=== PATIENT | female | born 1965 | race Caucasian/White ===

== ENCOUNTER → 2017-01-28 | Day surgery (SDC) | payer OTHER, MEDICARE ==
--- NOTE | 2017-01-27 16:37 | History & Physical Pre-Op ---
General Information and HPI History of Present Illness: Mei is a 51-year-old female with a long-standing and worsening complaint of a painful Toñito's deformity left heel. She hasn't has undergone an extended course of conservative care, including shoe gear and activity modification, rest , immobilization and courses of NSAIDs. None of this is yielded her any significant relief. The patient presents today for preoperative surgical consultation. Allergies/Medications Allergies: Coded Allergies: bacitracin (UNKNOWN 12/28/15) calamine (UNKNOWN 12/28/15) chlorpromazine (From Thorazine) (UNKNOWN 01/27/17) FROM ANTIBIOTIC ORDER SHEET OF 01/27/17 (SJS) codeine (UNKNOWN 12/28/15) epinephrine (UNKNOWN 12/28/15) neomycin (UNKNOWN 12/28/15) polymyxin B (UNKNOWN 12/28/15) sulfamethoxazole (From Bactrim) (UNKNOWN 01/27/17) FROM ANTIBIOTIC ORDER SHEET OF 01/27/17 (SJS) thioridazine (IBOI4GX 12/28/15) trimethoprim (From Bactrim) (UNKNOWN 01/27/17) FROM ANTIBIOTIC ORDER SHEET OF 01/27/17 (SJS) Home Med list Albuterol Sulfate (Albuterol Sulfate Hfa) 0.09 MG/Actuation GINA 2 PUFF INH Q4H PRN SHORTNESS OF BREATH (Reported) 90 MCG PER PUFF Albuterol Sulfate 3 ML NEB 3 ML INH PRN COPD (Reported) Atorvastatin Calcium (Lipitor) 10 MG TAB 1 TAB PO DAILY CHOLESTEROL (Reported ) Budesonide/Formoterol Fumara (Symbicort 160-4.5 Mcg Inhaler) 160 MCG/4.5 MCG PUF 2 PUF INH BID COPD (Reported) BUPROPION HCL (Bupropion XL) 150 MG T24 1 TAB PO QAM MENTAL HEALTH (Reported) CALCIUM CARBONATE/MAG CARB (Magnebind 300 Tablet) (Unknown Strength) TAB 1 TAB PO BID SUPPLEMENT (Reported) Clonazepam (Klonopin 1MG Tab) 1 MG TAB 1 TAB PO QHS PRN MENTAL HEALTH ( Reported) Clozapine 100 MG TAB 500 MG PO QHS MENTAL HEALTH (Reported) Enoxaparin Sodium (Lovenox) 40 MG/0.4 ML SYRINGE 0.4 ML SC DAILY OFF COUNADIN (Reported) Esomeprazole (Nexium) 40 MG CAP 1 CAP PO BID GI (Reported) Gabapentin (Gabapentin Tab 600MG) 600 MG TAB 1 TAB PO BID MENTAL HEALTH/ SEIZURES (Reported) Lamotrigine (Lamictal 25MG) 25 MG TAB 2 TAB PO DAILY MENTAL HEALTH (Reported) Levetiracetam 750 MG TAB 1 TAB PO BID SEIZURES (Reported) Levothyroxine Sodium 0.2 MG TAB 0.2 MG PO DAILY AC THYROID (Reported) METFORMIN HCL (Metformin) 1,000 MG TAB 1 TAB PO BID DIABETES (Reported) Multivitamin (Multiple Vitamins) 1 TAB TAB 1 TAB PO DAILY SUPPLEMENT ( Reported) Nitroglycerin (Nitrostat) 0.4 MG TAB 1 TAB SL PRN HEART (Reported) Vitamin B Complex 1 CAP CAP 1 CAP PO DAILY SUPPLEMENT (Reported) Warfarin Sodium (Coumadin) 2 MG TAB 1 TAB PO DAILY BLOOD THINNER Warfarin Sodium (Coumadin) 5 MG TAB 1 TAB PO DAILY BLOOD THINNER Past History Medical History Neurological: restless leg syndrome, SEIZURES- last in 1996. EENT: NONE Cardiovascular: hyperlipidemia, PERICARDITIS Respiratory: COPD, pulmonary embolism Gastrointestinal: NONE, IBS/GERD/Hx Fe deficiency Hepatic: 03/17/2008: Liver bx- negative. 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 spouse Services at Home None Primary Language: French Living Will? unknown Power of Boiling Tub Operator/HCP? unknown Functional Ability ADLs Independent: dressing, eating, toileting, bathing. Ambulation: independent IADLs Independent: shopping, housework, finances, food prep, telephone, transportation , medication admin. Review of Systems Review of Systems: Unremarkable except for that noted in history of present illness Exam & Diagnostic Data Physical Exam: Lungs clear bilaterally. Heart sounds rate and rhythm regular. Lower extremity physical exam demonstrates intact pedal pulses bilaterally. Both dorsalis pedis and posterior tibial arteries are palpable bilaterally. Patient without any sensory motor deficits. Deep tendon reflexes grossly intact. Patient noted to have significant pain with palpation to the posterior aspect of her left heel. Assessment/Plan Assessment/Plan: Painful Toñito's deformity left heel. A lengthy discussion reviewing both surgical and conservative options was held with the patient at bedside and the patient elects to go. Forward with surgery despite the risks. As Ranked By This Provider Problem List: 1. Injury of left Achilles tendon Attending MD Review Statement Attending Statement Attending MD Statement: examined this patient
[~2017-01-28] VITALS: Ht 162.6 cm; Wt 66.2 kg
[~2017-01-28] MED LIST: ALBUTEROL SULFAT3 M1 INH; ALBUTEROL0.09 MG/A1 INH; ANTIVERT 25 MG25 MG PO; ATORVASTATIN CA10 MG PO; AUGMENTIN 875 M1 TAB PO; BUPROPION HCL150 M2 PO; CLOZAPINE100 MG PO; COUMADIN 10 MG10 MG PO; COUMADIN 2 MG TA2 MG PO; COUMADIN 5 MG TA5 MG PO; FISH OIL CONC1000 MG PO; GABAPENTIN TAB600 MG PO; KLONOPIN 1MG TAB1 MG PO; LAMICTAL 25MG25 MG PO; LEVETIRACETAM750 MG PO; LEVOTHYROXINE0.2 MG PO; LOVENOX40 MG/0.1 SC; MAGNEBIND 300 21 TAB PO; METFORMIN1000 MG PO; MULTIVITAMIN1 TAB PO; NEXIUM 40MG40 MG PO; NITROSTAT0.4 MG SL; SYMBICORT 160/41 PUF INH; VITAMIN B COMPL1 CAP PO
[2017-01-28 10:37] LABS: PT 11.1 SEC (9.4-12.5)
--- NOTE | 2017-01-28 12:56 | Operative Report ---
Operative/Inv Procedure Report Surgery Date: 01/28/17 Name of Procedure: 1 resection of Toñito's left heel 2 repair of Achilles tendon left 3 intraoperative administration of ankle block anesthesia 4 intraoperative application of nonweightbearing cast left Pre-Operative Diagnosis: 1 painful Toñito's deformity left heel 2 chronic Achilles tendinosis left Post-Operative Diagnosis: The same Estimated Blood Loss: scant Surgeon/Seamless Tube Drawer: CHRISTIE HENDERSON,ROSALINO Jaramillo DPM Anesthesia: moderate sedation, block Operative/Procedure Note Note: After obtaining informed consent the patient was brought to the operating room and placed on the operating table in the prone position. The patient was then securely fastened to the operating table utilizing a safety belt. After administration of IV sedation, 10 mL of 0.5% Marcaine plain was infiltrated about the patient's posterior left leg. A well-padded thigh tourniquet was placed about the patient's left upper thigh. 2 g of Ancef were delivered intravenously times one dose. The left lower extremity was scrubbed prepped and draped in the usual aseptic manner. The left leg was flexed at the knee and exsanguinated, at which point the thigh tourniquet was inflated 275 mmHg. Attention directed to the posterior left heel, where a adjacent shaped incision encompassing the Toñito's was marked out with a skin marker. The skin was then incised with a 15 blade and deepened into the septae slayers. A full-thickness flap was then elevated off the posterior aspect of the Achilles tendon. The Achilles was noted to have significant tendinosis. This was then debrided. The tendon was then elevated off the posterior aspect of the calcaneus. A significant posterior spur was identified and this was resected with a sagittal bone saw. The tendon was then debrided and repaired and fixated back to the posterior calcaneus with the Arthrex Achilles bridge. The deep tissues were then reapproximated with 3-0 Vicryl. Subtenons tissues reapproximated 4-0 Vicryl and the skin edges reapproximated with 3-0 nylon. Incision was then dressed with Xeroform 4 x 4's and cast padding. A none weightbearing Krishnan compressive dressing and 4 inch posterior splint was then placed about the patient's left posterior leg. Patient was noted tolerate both procedure and anesthesia well and the patient was transported from the operating room to recovery via signs stable best assess intact all digits left foot.
== END ==
LOC: STS 04:00
PROVIDERS: Podiatrist Foot & Ankle Surgery
DX: M21.6X2 Other acquired deformities of left foot (principal); M67.874 Other specified disorders of tendon, left ankle and foot; R06.02 Shortness of breath; J44.9 Chronic obstructive pulmonary disease, unspecified; D68.61 Antiphospholipid syndrome; E03.9 Hypothyroidism, unspecified; Z86.711 Personal history of pulmonary embolism; Z79.01 Long term (current) use of anticoagulants
CPT/HCPCS: 1263; 36415; 81025; 88304; J0131; J0690; J2001; J2250

== ENCOUNTER → 2017-05-08 | Day surgery (SDC) | payer OTHER, MEDICARE ==
[~2017-05-08] VITALS: Ht 170.2 cm; Wt 112.5 kg
[~2017-05-08] MED LIST changes: +LEVOTHYROXINE25 MCG PO; +OXYCODONE HCL5 M2 PO
--- NOTE | 2017-05-08 12:32 | Operative Report ---
Operative/Inv Procedure Report Surgery Date: 05/08/17 Name of Procedure: D&C hysteroscopy Pre-Operative Diagnosis: Metromenorrhagia Post-Operative Diagnosis: Same Estimated Blood Loss: less than 50ml Surgeon/Barrel Lathe Operator: NATHEN ONOFRE MD Anesthesia: moderate sedation Operative/Procedure Note Note: Patient was taken to the operating room placed in dorsal supine position. After adequate anesthesia, patient was prepped and draped for surgery. Examination under anesthesia was performed. CO2 tenaculum was placed on the anterior lip of the cervix gentle downward traction was used. The cervix was dilated 29 Hegar to left insertion of the hysteroscope. Under direct visualization to hysteroscopy was performed using gas hysteroscope was removed and endocervical curettage was performed. And endometrial curettage was performed. All instruments removed from the vagina. The counts were correct the patient was awakened from anesthesia. And transported to recovery room awake and alert. Findings: Enlarged uterus no adnexal masses heavy uterine lining
== END ==
LOC: STS 02:31
DX: N92.1 Excessive and frequent menstruation with irregular cycle (principal); N85.2 Hypertrophy of uterus; E11.9 Type 2 diabetes mellitus without complications; E03.9 Hypothyroidism, unspecified; K21.9 Gastro-esophageal reflux disease without esophagitis
CPT/HCPCS: 36415; J2250

== ENCOUNTER → 2017-12-23 | Day surgery (SDC) | payer OTHER, MEDICARE ==
--- NOTE | 2017-12-21 20:08 | History & Physical Pre-Op ---
General Information and HPI History of Present Illness: Mei is a 52-year-old female status post Toñito's resection with repair of the Achilles tendon, who developed a foreign body reaction with an associated soft tissue lesion and nonhealing wound left ankle. The patient has failed an extended course of local intensive wound care in the wound center. Patient presents today for preoperative surgical consultation. Allergies/Medications Allergies: Coded Allergies: bacitracin (Intermediate, RASH 12/19/17) calamine (Intermediate, RASH 12/19/17) codeine (Intermediate, DIZZINESS, DYSPNEA 12/21/17) epinephrine (Intermediate, DIZZINESS, DYSPNEA 12/21/17) neomycin (Intermediate, RASH 12/19/17) polymyxin B (RASH 12/21/17) Home Med list Albuterol Sulfate (Proair Hfa) 90 MCG HFA.AER.AD 2 PUF INH AD PRN COPD ( Reported) Albuterol Sulfate 2.5 MG/3 ML (0.083 %) VIAL.NEB 1 Vial INH/CEZAR AD PRN COPD ( Reported) Atorvastatin Calcium (Lipitor) 10 MG TABLET 1 TAB PO QPM CHOLESTEROL ( Reported) Budesonide/Formoterol Fumarate (Symbicort 160-4.5 Mcg Inhaler) 160 MCG-4.5 MCG/ ACTUATION HFA.AER.AD 2 PUF INH BID COPD (Reported) Bupropion HCl (Wellbutrin XL) 150 MG TAB.ER.24H 1 TAB PO DAILY MENTAL HEALTH (Reported) Clonazepam 1 MG TABLET 1 TAB PO BIDP PRN ANXIETY/RLS (Reported) Clozapine (Clozaril) 100 MG TABLET 500 MG PO QHS MENTAL HEALTH (Reported) Esomeprazole (Nexium) 40 MG CAPSULE.DR 1 CAP PO BID GI (Reported) Gabapentin 600 MG TABLET 1 TAB PO BID PRN ANXIETY (Reported) Lamotrigine (Lamictal) 100 MG TABLET 1 TAB PO DAILY MENTAL HEALTH (Reported) Lamotrigine (Lamictal) 25 MG TABLET 2 TAB PO DAILY MENTAL HEALTH (Reported) Levetiracetam (Keppra) 500 MG TABLET 2 TAB PO BID MYOCLONIC SPASMS (Reported) Levetiracetam (Keppra) 250 MG TABLET 1 TAB PO BID MYOCLONIC SPASMS (Reported) Levothyroxine Sodium 200 MCG TABLET 1 TAB PO DAILY THYROID (Reported) Meclizine HCl 25 MG TABLET 1 TAB PO AD PRN VERTIGO (Reported) Metformin HCl (Glucophage) 1,000 MG TABLET 1 TAB PO BID DM (Reported) Nitroglycerin (Nitrostat) 0.4 MG TAB.SUBL 1 TAB SL AD PRN CHEST PAIN ( Reported) 1st sign of attack; may repeat every 5 minutes until relief; if pain persists after 3 tablets in 15 minutes, prompt medical att [place]-3S/Dha/Epa/Fish Oil (Fish Oil 1,000 MG Softgel) (Unknown Strength) CAPSULE (Unknown Dose) PO BID SUPPLEMENT (Reported) Tramadol HCl 50 MG TABLET 1 TAB PO Q4H PRN PAIN (Reported) Vitamin B Complex 1 EACH CAPSULE 1 CAP PO DAILY SUPPLEMENT (Reported) Past History Medical History Neurological: restless leg syndrome, SEIZURES- last in 1996. EENT: NONE Cardiovascular: hyperlipidemia, PERICARDITIS Respiratory: COPD, pulmonary embolism Gastrointestinal: NONE, IBS/GERD/Hx Fe deficiency Hepatic: 03/17/2008: Liver bx- negative. 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 spouse Services at Home None Primary Language: Latvian Living Will? unknown Power of Aircraft Instrument Tester/HCP? unknown Functional Ability ADLs Independent: dressing, eating, toileting, bathing. Ambulation: independent IADLs Independent: shopping, housework, finances, food prep, telephone, transportation , medication admin. Review of Systems Review of Systems: Unremarkable except for that noted in history of present illness Exam & Diagnostic Data Physical Exam: Lungs clear bilaterally. Heart sounds rate and rhythm regular. Lower extremity physical exam demonstrates intact pedal pulses bilaterally. Both dorsalis pedis and posterior tibial arteries are palpable bilaterally. Patient without any sensory motor deficits. Deep tendon reflexes plus grossly intact. Patient noted to have a 17 medial by 1 cm lesion identified at the distal medial aspect of the left ankle. There is probing identified. A hyper granular wound bed is noted centrally. No erythema or significant drainage identified. Assessment/Plan Assessment/Plan: Soft tissue lesion left ankle. A lengthy discussion reviewing both surgical and conservative options with the patient at bedside and the patient elects to go forward with surgery despite the risks. As Ranked By This Provider Problem List: 1. Neoplasm of unspecified behavior of bone, soft tissue, and skin Attending MD Review Statement Attending Statement Attending MD Statement: examined this patient
[~2017-12-23] VITALS: Ht 170.2 cm; Wt 112.5 kg
[~2017-12-23] MED LIST changes: +ALBUTEROL2.5 MG/3 M INH/SOL; +CLONAZEPAM1 M2 PO; +CLOZARIL100 M1 PO; +COUMADIN; +FISH OIL 1,0001 EAC5 PO; +GABAPENTIN600 M1 PO; +GLUCOPHAGE1000 M1 PO; +KEPPRA250 M1 PO; +KEPPRA500 M1 PO; +LAMICTAL100 M2 PO; +LAMICTAL25 M1 PO; +LEVOTHYROXINE200 MC1 PO; +LIPITOR10 M1 PO; +MECLIZINE HCL25 MG PO; +NEXIUM40 M1 PO; +NITROSTAT0.4 M1 SL; +PROAIR HFA8.5 GM INH; +SYMBICORT 16010.2 GM INH; +TRAMADOL HCL50 M1 PO; +VITAMIN B COMP1 EACH PO; +WELLBUTRIN XL150 M2 PO
--- NOTE | 2017-12-23 15:50 | Operative Report ---
Operative/Inv Procedure Report Surgery Date: 12/23/17 Name of Procedure: 1 excision of recurrent soft tissue lesion left ankle 2 closure of open surgical wound local random advancement flap 3 intraoperative administration of ankle block anesthesia Pre-Operative Diagnosis: 1 recurrent soft tissue lesion left ankle 2 retained foreign body left ankle Post-Operative Diagnosis: The same Estimated Blood Loss: scant Surgeon/Train Director: Mike HENDERSON,Roberto Jaramillo DPM Anesthesia: moderate sedation, block Operative/Procedure Note Note: After obtaining informed consent the patient was brought to the operating room and placed on the operating table in the supine position. The patient isn't securely fastened to the operating table utilizing safety belt. After Mr.'s of IV sedation, 10 mL of 0.5% Marcaine plain was infiltrated about the patient's left ankle. A well-padded ankle tourniquet was placed about the patient's left lower extremity. 2 g of Ancef were delivered intravenously times one dose. Left foot and ankle were scrubbed prepped and draped in usual aseptic manner. Left lower extremity was elevated to examine to limb, which point the ankle tourniquet inflated 250 mmHg. Attention then directed to the distal medial ankle, where a soft tissue lesion was identified and the distal portion of the prior incision site. The lesion was wedged out at a 31 ratio removed en bloc. The specimen sent for pathologic inspection. The deeper dissection uncovered foreign material consisting of free non-absorbable suture which was removed and passed from the operative field this was also sent as pathologic specimen. Nipple was then irrigated cuff Svensson normal sterile saline. A adjacent flap was then developed with undermining, mobilization adjacent advancement adjacent tissue centrally. The deep side flap was held with 3-0 Vicryl subtenons tissues reports a 4-0 Vicryl. Skin edges reapproximated 3-0 nylon. Incision just was Steri-Strips Xeroform 4 x 4's Kerlix and Reji wrap. The patient noted tolerate both procedure and anesthesia well and the patient was transported from the operating room to recovery by sent stable best assess intact to both the dorsal medial and lateral flaps.
== END ==
LOC: STS 03:04
PROVIDERS: Podiatrist Foot & Ankle Surgery
DX: D21.22 Benign neoplasm of connective and other soft tissue of left lower limb, including hip (principal); M60.272 Foreign body granuloma of soft tissue, not elsewhere classified, left ankle and foot; Z18.89 Other specified retained foreign body fragments; E11.9 Type 2 diabetes mellitus without complications; Z79.84 Long term (current) use of oral hypoglycemic drugs; Z86.711 Personal history of pulmonary embolism; Z79.01 Long term (current) use of anticoagulants; J44.9 Chronic obstructive pulmonary disease, unspecified; E03.9 Hypothyroidism, unspecified
CPT/HCPCS: 36415; 81025; J0690; J1885; J2001; J2250; J3490

== ENCOUNTER → 2018-03-10 | Day surgery (SDC) | payer OTHER, MEDICARE ==
--- NOTE | 2018-03-05 16:05 | History & Physical Pre-Op ---
General Information and HPI MD Statement: I have seen and personally examined ESVIN CESPEDES and documented this H&P. The patient is a 52 year old F who presented with a patient stated chief complaint of [inflammatory reaction to surgical implant, left heel]. Planned Procedures: Excision of granuloma, left heel, with exploration and possible removal of surgical implant and primary closure of chronic non-healing wound Planned Anesthesia: General, prone position Planned Hemostasis: Pneumatic left thigh cuff at 325mmHg Source of Information: patient Exam Limitations: no limitations History of Present Illness: This is a 52 year old female who was referred to me in the [facility] for a chronic nonhealing protruding wound that has been present for several months. Patient reports that she had a Toñito resection with Arthrex Achilles Speedbridge implant on 01/28/[address] Roberto Mckeon and that the wound presented itself along the incision line after she had healed the procedure. She reports that an attempt was made to excise the granulation tissue and the wound recurred. In the few weeks I have had her under my care, I obtained an MRI, which demonstrated hyperintensity of the calcaneus, successful posterior spur resection with benign Achilles, and inflammation subcutaneously in the area of the ulceration. In the time since the MRI, she reports having extruded portions of the plastic implant through the wound and showed me pictures of them on her phone. After discussing multiple options with the patient, we agreed to explore the surgical wound for more pieces of the implant and possibly suture threads, which she no longer needs implanted after the procedure has healed. She was also immobilized in a CAM walker in the weeks leading up to the procedure with the diagnosis of marrow edema in the calcaneus. Allergies/Medications Allergies: Coded Allergies: bacitracin (Intermediate, RASH 03/05/18) calamine (Intermediate, RASH 03/05/18) codeine (Intermediate, DIZZINESS, DYSPNEA 03/05/18) epinephrine (Intermediate, DIZZINESS, DYSPNEA 03/05/18) neomycin (Intermediate, RASH 03/05/18) polymyxin B (RASH 03/05/18) Home Med list Albuterol Sulfate (Proair Hfa) 90 MCG HFA.AER.AD 2 PUF INH AD PRN COPD ( Reported) Albuterol Sulfate 2.5 MG/3 ML (0.083 %) VIAL.NEB 1 Vial INH/CEZAR AD PRN COPD ( Reported) Atorvastatin Calcium (Lipitor) 10 MG TABLET 1 TAB PO QPM CHOLESTEROL ( Reported) Budesonide/Formoterol Fumarate (Symbicort 160-4.5 Mcg Inhaler) 160 MCG-4.5 MCG/ ACTUATION HFA.AER.AD 2 PUF INH BID COPD (Reported) Bupropion HCl (Wellbutrin XL) 150 MG TAB.ER.24H 1 TAB PO DAILY MENTAL HEALTH (Reported) Clonazepam 1 MG TABLET 1 TAB PO BIDP PRN ANXIETY/RLS (Reported) Clozapine (Clozaril) 100 MG TABLET 500 MG PO QHS MENTAL HEALTH (Reported) Esomeprazole (Nexium) 40 MG CAPSULE.DR 1 CAP PO BID GI (Reported) Gabapentin 600 MG TABLET 1 TAB PO BID PRN ANXIETY (Reported) Lamotrigine (Lamictal) 100 MG TABLET 1 TAB PO DAILY MENTAL HEALTH (Reported) Lamotrigine (Lamictal) 25 MG TABLET 2 TAB PO DAILY MENTAL HEALTH (Reported) Levetiracetam (Keppra) 500 MG TABLET 2 TAB PO BID MYOCLONIC SPASMS (Reported) Levetiracetam (Keppra) 250 MG TABLET 1 TAB PO BID MYOCLONIC SPASMS (Reported) Levothyroxine Sodium 200 MCG TABLET 1 TAB PO DAILY THYROID (Reported) Meclizine HCl 25 MG TABLET 1 TAB PO AD PRN VERTIGO (Reported) Metformin HCl (Glucophage) 1,000 MG TABLET 1 TAB PO BID DM (Reported) Nitroglycerin (Nitrostat) 0.4 MG TAB.SUBL 1 TAB SL AD PRN CHEST PAIN ( Reported) 1st sign of attack; may repeat every 5 minutes until relief; if pain persists after 3 tablets in 15 minutes, prompt medical att [place]-3S/Dha/Epa/Fish Oil (Fish Oil 1,000 MG Softgel) (Unknown Strength) CAPSULE (Unknown Dose) PO BID SUPPLEMENT (Reported) Tramadol HCl 50 MG TABLET 1 TAB PO Q4H PRN PAIN (Reported) Vitamin B Complex 1 EACH CAPSULE 1 CAP PO DAILY SUPPLEMENT (Reported) Compliance With Home Meds: GOOD Past History Medical History Neurological: restless leg syndrome, SEIZURES- last in 1996. EENT: NONE Cardiovascular: hyperlipidemia, PERICARDITIS Respiratory: COPD, pulmonary embolism Gastrointestinal: NONE, IBS/GERD/Hx Fe deficiency Hepatic: 03/17/2008: Liver bx- negative. 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 spouse Services at Home None Primary Language: Bulgarian Living Will? unknown Power of Prenatal Nurse/HCP? unknown Functional Ability ADLs Independent: dressing, eating, toileting, bathing. Ambulation: independent IADLs Independent: shopping, housework, finances, food prep, telephone, transportation , medication admin. Review of Systems Review of Systems: A 14 point review of systems was peformed and found to be negative apart from the complaint of painful open wound, left heel. Exam & Diagnostic Data Last 24 Hrs of Vital Signs/I&O Intake & Output 03/05 1600 03/05 0800 03/05 0000 Intake Total Output Total Balance Patient 248 lb Weight Physical Exam: The patient has palpable pedal pulses bilaterally, dorsalis pedis 2/4, posterior tibial 2/4. Normal temperature gradient BLE warm to cool proximal to distal. CFT 3s x 10 toes. Pt has slight loss of hair growth dorsal and bilateral. Faint varicosities dorsal and b/l midfeet. She has intact sensation on proprioceptive and light touch examinations. She has 5/5 muscle power in all BLE compartments. There is no edema, no erythema, no maceration. There is an L-shaped scar posteriorly on the left heel consistent with her reported history of prior Toñito resection and Achilles repair. At the superior-medial edge of this scar, there is a 1cm diameter round granulomatous protruding ulcerated mass with some serous drainage. There is no purulence, no fluctuance, no malodor, no crepitus. Assessment/Plan Assessment/Plan: 52 y/o female with granuloma of posterior left heel and possible foreign body reaction to surgical implant, left calcaneus. Patient was most recently seen and evaluated on 03/03/18. I explained all the risks and benefits of the procedures to be performed and made no guarantees about their outcome. I have reviewed the MRI with the patient, and in the absence of any clinical signs of infection, as well as her reporting substantial improvement with immobilization in a CAM walker, have proposed to the patient that we initially treat the T2 hyperintensity as marrow edema and biopsy the calcaneus as part of the procedure. The patient is also acutely aware that the primary goal of the procedure is to remove those portions of the implant that upon intraoperative inspection appear to be causing her problem, as she has had no complications in the other portions of the incision otherwise. This includes removing suture line and portions of the plastic implant as needed and as determined feasible intraoperatively. She will receive a small supply of Percocet 5/325 from [place] and she will be able to PWB with the CAM boot immediately after the procedure. She will follow up with me March 10 at the [facility] and weekly thereafter. As Ranked By This Provider Problem List: 1. Neoplasm of unspecified behavior of bone, soft tissue, and skin
[~2018-03-10] VITALS: Ht 170.2 cm; Wt 112.5 kg
[~2018-03-10] MED LIST changes: +LOVENOX30 MG/0.1 SC; +OMEPRAZOLE40 M1 PO; +VITAMIN B-650 M1 PO
[2018-03-10 13:06] LABS: PT 11.6 SEC (9.4-12.5)
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
== END ==
LOC: STS 00:47
PROVIDERS: Podiatrist Foot & Ankle Surgery
DX: T84.60XA Infection and inflammatory reaction due to internal fixation device of unspecified site, initial encounter (principal); T84.82XA Fibrosis due to internal orthopedic prosthetic devices, implants and grafts, initial encounter; M89.8X7 Other specified disorders of bone, ankle and foot; E11.621 Type 2 diabetes mellitus with foot ulcer; L97.422 Non-pressure chronic ulcer of left heel and midfoot with fat layer exposed; J44.9 Chronic obstructive pulmonary disease, unspecified; I26.99 Other pulmonary embolism without acute cor pulmonale; E11.9 Type 2 diabetes mellitus without complications; Z79.84 Long term (current) use of oral hypoglycemic drugs; E03.9 Hypothyroidism, unspecified
CPT/HCPCS: 36415; J2001; J2250